=== PATIENT | female | born 1970 | race African-American/Black ===

== ENCOUNTER 2024-02-09 13:01 | Day surgery (SDC) | payer OTHER ==
[2024-02-09] MEDS ORDERED: Depo-Medrol 40 MG/ML IM ONE (13:02)
[2024-02-09] MEDS ORDERED: Sodium Chloride 0.9(Preservative Free) 10 ML IJ ONE (13:02)
[2024-02-09] MEDS ORDERED: DIPRIVAN 200 MG/20 ML IV ONE ×2 (14:29→14:51)
[2024-02-09] MEDS ORDERED: Lactated Ringers 1,000 ML IV ONE (15:02)
--- NOTE | 2024-02-09 17:12 | XRAY ---
Indication: Caudal ALEXANDRO. Intraoperative fluoroscopy provided for 20 seconds. 3 digital spot images submitted for interpretation demonstrates caudal needle tip projecting mid sacrum. Small amount of contrast injected for needle tip placement. Correlate with intraoperative findings/report.
--- NOTE | 2024-02-09 17:14 | XRAY ---
20 seconds of fluoroscopy was used in surgery for a caudal ALEXANDRO.
== END 2024-02-09 15:24 | disposition home or self-care (01) ==
LOC: SDC-PAIN 13:01
PROVIDERS: ATTEND Psychiatry & Neurology Pain Medicine
DX: M54.16 Radiculopathy, lumbar region (principal)
CPT/HCPCS: 62323; 72220; 77003; J2704; Q9966

== ENCOUNTER 2024-04-13 13:58 | Day surgery (SDC) | payer OTHER ==
[2024-04-13] MEDS ORDERED: Xylocaine-Mpf 2% 5 Ml Vial IJ ONE (13:59)
[2024-04-13] MEDS ORDERED: DIPRIVAN 200 MG/20 ML IV ONE (15:01)
[2024-04-13] MEDS ORDERED: Xylocaine-Mpf 2% 5 Ml Vial ONE (15:02)
--- NOTE | 2024-04-13 16:33 | XRAY ---
Indication: Bilateral L4-S1 MBB. Intraoperative fluoroscopy provided for 19 seconds. Single digital spot image submitted for interpretation demonstrates posterior needle tips projecting over the expected left and right L4-S1 nerve roots. Correlate with intraoperative findings/report.
--- NOTE | 2024-04-13 16:44 | XRAY ---
19 seconds of fluoroscopy was used in surgery for a bilateral L4-S1 MBB.
== END 2024-04-13 15:31 | disposition home or self-care (01) ==
LOC: SDC-PAIN 13:58
PROVIDERS: ATTEND Psychiatry & Neurology Pain Medicine
DX: M47.816 Spondylosis without myelopathy or radiculopathy, lumbar region (principal)
CPT/HCPCS: 64493; 64494; 72020; 77002; J2704

== ENCOUNTER 2024-05-25 13:01 | Day surgery (SDC) | payer OTHER ==
[2024-05-25] MEDS ORDERED: Sodium Chloride 0.9(Preservative Free) 10 ML IJ ONE (13:02)
[2024-05-25] MEDS ORDERED: LIDOCAINE HCL 1% AMPUL 5 ML IJ ONE (13:02)
[2024-05-25] MEDS ORDERED: BUPIVACAINE 0.5% VIAL IJ ONE (13:02)
[2024-05-25] MEDS ORDERED: DIPRIVAN 200 MG/20 ML IV ONE (14:47)
--- NOTE | 2024-05-25 16:50 | XRAY ---
Indication: Bilateral L4-S1 MBB. Intraoperative fluoroscopy provided for 18 seconds. Single digital spot image submitted for interpretation demonstrates posterior needle tips projecting over expected left and right L4-S1 nerve roots. Correlate with intraoperative findings/report.
--- NOTE | 2024-05-25 16:54 | XRAY ---
18 seconds of fluoroscopy was used in surgery for a bilateral L4-S1 MBB.
== END 2024-05-25 15:15 | disposition home or self-care (01) ==
LOC: SDC-PAIN 13:01
PROVIDERS: ATTEND Psychiatry & Neurology Pain Medicine
DX: M47.816 Spondylosis without myelopathy or radiculopathy, lumbar region (principal)
CPT/HCPCS: 64493; 64494; 72020; 77002; J2704

== ENCOUNTER 2024-07-12 12:02 | Day surgery (SDC) | payer OTHER ==
[2024-07-12] MEDS ORDERED: LIDOCAINE HCL 1% AMPUL 5 ML IJ ONE (12:03)
[2024-07-12] MEDS ORDERED: BUPIVACAINE 0.5% VIAL IJ ONE (12:03)
[2024-07-12] MEDS ORDERED: Depo-Medrol 40 MG/ML IM ONE (12:03)
[2024-07-12] MEDS ORDERED: propofoL IV ONE (13:53)
--- NOTE | 2024-07-12 16:32 | XRAY ---
Indication: Right L4-S1 RFA. Intraoperative fluoroscopy provided for 16 seconds. 4 digital spot image submitted for interpretation demonstrates posterior needle tips projecting over expected right L4-S1 nerve roots. Correlate with intraoperative findings/report.
--- NOTE | 2024-07-12 16:43 | XRAY ---
16 seconds of fluoroscopy was used in surgery for a right L4-S1 RFA.
== END 2024-07-12 14:24 | disposition home or self-care (01) ==
LOC: SDC-PAIN 12:02
PROVIDERS: ATTEND Psychiatry & Neurology Pain Medicine
DX: M47.816 Spondylosis without myelopathy or radiculopathy, lumbar region (principal)
CPT/HCPCS: 64635; 64636; 72100; 77002; J2704

== ENCOUNTER 2024-07-26 11:07 | Day surgery (SDC) | payer OTHER ==
[2024-07-26] MEDS ORDERED: BUPIVACAINE 0.5% VIAL IJ ONE (11:08)
[2024-07-26] MEDS ORDERED: Depo-Medrol 40 MG/ML IM ONE (11:08)
[2024-07-26] MEDS ORDERED: LIDOCAINE HCL 1% AMPUL 5 ML IJ ONE (11:08)
[2024-07-26] MEDS ORDERED: Lactated Ringers 500 ML IV ONE (11:52)
[2024-07-26] MEDS ORDERED: propofoL IV ONE (13:04)
--- NOTE | 2024-07-26 14:04 | XRAY ---
Indication: Left L4-S1 RFA. Intraoperative fluoroscopy provided for 21 seconds. 3 digital spot image submitted for interpretation demonstrates posterior needle tips projection over expected left L4-S1 nerve roots. Correlate with intraoperative findings/report.
--- NOTE | 2024-07-26 14:58 | XRAY ---
21 seconds of fluoroscopy was used in surgery for a left L4-S1 RFA.
== END 2024-07-26 13:56 | disposition home or self-care (01) ==
LOC: SDC-PAIN 11:07
PROVIDERS: ATTEND Psychiatry & Neurology Pain Medicine
DX: M47.817 Spondylosis without myelopathy or radiculopathy, lumbosacral region (principal)
CPT/HCPCS: 64635; 64636; 72100; 77002; J2704

== ENCOUNTER 2024-09-28 13:59 | Day surgery (SDC) | payer OTHER ==
[2024-09-28] MEDS ORDERED: BUPIVACAINE 0.5% VIAL IJ ONE (14:00)
[2024-09-28] MEDS ORDERED: Depo-Medrol 40 MG/ML IM ONE (14:00)
[2024-09-28] MEDS ORDERED: propofoL IV ONE (15:11)
--- NOTE | 2024-09-28 19:27 | XRAY ---
23 seconds of fluoroscopy was used in surgery for a bilateral sacroiliac joint injection.
--- NOTE | 2024-09-28 19:47 | XRAY ---
Indication: Bilateral SI joints injection. Intraoperative fluoroscopy provided for 23 seconds. 3 digital spot image submitted for interpretation demonstrates posterior needle tips projecting over left and right SI joints. Small amount of contrast injected for needle tip placement. Correlate with intraoperative findings/report.
== END 2024-09-28 15:47 | disposition home or self-care (01) ==
LOC: SDC-PAIN 13:59
PROVIDERS: ATTEND Psychiatry & Neurology Pain Medicine
DX: M46.1 Sacroiliitis, not elsewhere classified (principal)
CPT/HCPCS: 27096; 72202; J2704; Q9966